=== PATIENT | female | born 1935 | race Asian ===

== ENCOUNTER 2017-03-20 19:50 | Emergency (ER) | payer MEDICARE, OTHER ==
[~2017-03-20] VITALS: Ht 157.5 cm; Wt 68.0 kg
[~2017-03-20 19:50] MED LIST: ALEN70TA15; AMLO-145; ESOM40CA; LIDO700A6; RALO60TA12; VALS160T20; [UNRECOGNIZED DRUG - REMARK]
[2017-03-20 19:55] VITALS: Ht 157.5 cm; Wt 68.0 kg
--- NOTE | 2017-03-20 21:58 | ERA ---
ER Documentation Chief Complaint Date/Time DATE: 03/20/17 TIME: 21:58 Chief Complaint cough, sob x 1 week, no respiratory distress noted HPI The patient is a 81-year-old female, presenting to the ER because of intermittent coughs, sneezing, congestion for 1 week. She does not any fever, chills, neck pain, chest pain, abdominal pain, vomiting, dysuria, diarrhea. She does not smoke Past medical history: Hypertension, osteoporosis Past surgical history: Right nephrectomy ROS All systems reviewed and are negative except as per history of present illness. Medications Home Meds Active Scripts Methylprednisolone* (Medrol* DOSE PACK) 4 Mg/Dose-Pack Tab.ds.pk, 4 MG PO . DIRECTED, #1 PACKET Prov:MOSES PATEL MD 03/20/17 Albuterol Sulfate* (Proair HFA*) 8.5 Gm Hfa.aer.ad, 2 PUFF INH Q4, #1 INHALER Prov:MOSES PATEL MD 03/20/17 Dextromethorphan Hb-Promethazine Hcl* (Promethazine DM* Syrup) 473 Ml Syrup, 10 ML PO Q6 Y for COUGH, #120 ML Prov:MOSES PATEL MD 03/20/17 Azithromycin* (Zithromax*) 250 Mg Tablet, 250 MG PO .ZPACK DIRECTED, #6 TAB TAKE 500 MG (2 TABS) THE FIRST DAY THEN 250 MG (1 TAB) DAYS 2-5 Prov:MOSES PATEL MD 03/20/17 Reported Medications Alendronate Sodium (Fosamax) 70 Mg Tablet 08/07/10 Lidocaine 5%* (Lidoderm 5%*) 30 Ea Adh..patch 08/07/10 Esomeprazole Mag Trihydrate (Nexium) 40 Mg Capsule. 08/07/10 Raloxifene Hcl* (Evista*) 60 Mg Tablet 08/07/10 Amlodipine Besylate* (Amlodipine Besylate*) 5 Mg Tablet 08/07/10 Valsartan* (Diovan*) 160 Mg Tablet 08/07/10 [Artheritis Meds] No Conflict Check 04/08/10 Allergies Allergies: Coded Allergies: Ibuprofen (Verified Allergy, Unknown, 04/10/11) Uncoded Allergies: [id number] (ADVIL) (Allergy, Mild, 08/07/10) PMhx/Soc History of Surgery: No Anesthesia Reaction: No Hx Neurological Disorder: No Hx Respiratory Disorders: No Hx Cardiac Disorders: Yes (HTN) Hx Psychiatric Problems: No Hx Miscellaneous Medical Probl: No Hx Alcohol Use: No Hx Substance Use: No Hx Tobacco Use: No Physical Exam Vitals Vital Signs Date Time Temp Pulse Resp B/P Pulse Ox O2 Delivery O2 Flow Rate FiO2 03/21/17 00:04 16 100 Room Air 03/20/17 23:38 71 22 95 21 03/20/17 22:29 68 20 96 21 03/20/17 19:55 99.9 72 17 152/86 96 Physical Exam Const: No acute distress. Head: Atraumatic. Eyes: Normal Conjunctiva. ENT: Normal External Ears, Nose and Mouth. Bilateral tympanic membranes and oropharynx are within normal limit Neck: Full range of motion. No meningismus. Resp: Minimal expiratory wheezes Cardio: Regular rate and rhythm, no murmurs. Abd: Soft, non distended, normal bowel sounds, non tender. Skin: No petechiae or rashes. Back: No midline or flank tenderness. Ext: No cyanosis, or edema. Neur: Awake and alert. No focal deficit Psych: Normal Mood and Affect. Results 24 hrs Current Medications Medications (Trade) Dose Ordered Sig/Yvon Route PRN Reason Start Time Stop Time Status Last Admin Dose Admin Levalbuterol (Xopenex Neb) 1.25 mg ONCE ONCE [facility] 03/20/17 22:30 03/20/17 22:31 DC 03/20/17 22:28 Ipratropium [place] (Atrovent 0.02% (Neb)) 0.5 mg ONCE ONCE [facility] 03/20/17 22:30 03/20/17 22:31 DC 03/20/17 22:28 Levalbuterol (Xopenex Neb) 1.25 mg ONCE ONCE [facility] 03/20/17 23:30 03/20/17 23:31 DC 03/20/17 23:37 Ipratropium [place] (Atrovent 0.02% (Neb)) 0.5 mg ONCE ONCE [facility] 03/20/17 23:30 03/20/17 23:31 DC 03/20/17 23:37 Procedures/[place] [address] Radiology Main Line: [phone] DIAGNOSTIC IMAGING REPORT Patient: BILL LOZA : 1935 Age: 81 Sex: F MR #: [id number] DOS: 03/20/17 2211 Ordering MD: MOSES PATEL MD Location: FTE Room/Bed: PROCEDURE: XR Chest. CLINICAL INDICATION: Cough. TECHNIQUE: Single frontal chest x-ray. COMPARISON: None available. FINDINGS: The cardiomediastinal silhouette is unremarkable. Aortic atherosclerotic vascular calcifications and tortuosity are identified. Mild bibasilar atelectasis is noted. No pneumothorax, pleural effusion or consolidation is seen. No acute osseous abnormality is noted. IMPRESSION: 1. Mild bibasilar atelectasis. 2. Aortic tortuosity and atherosclerosis. RPTAT: HFN .Boni Drake MD, MD Date Time Electronically viewed and signed by .Boni Drake MD, MD on 03/20/2017 22: 53 .N/ CC: MOSES PATEL MD MEDICAL MAKING DECISION: The patient is a 81-year-old female, presenting with acute bronchitis with wheezing. she was treated with Xopenex 1.25 mg 2 and Atrovent 0.5 mg 2 nebulizer with good response. The differential diagnoses considered include but are not limited to asthma, COPD, pneumonia, pulmonary embolus, pleural effusion, congestive heart failure. Departure Diagnosis: Primary Impression: Bronchitis Condition: Good Comments She was discharged with albuterol MDI, Zithromax, Phenergan DM, Medrol dosepk I discussed the findings with the patient. I advised the patient to follow-up with the primary physician in about 1-2 days, sooner if needed and return if any concern. MOSES PATEL MD Mar 20, 2017 21:58
[2017-03-20] MEDS ORDERED: LEVALBUTEROL (NEB) 1.25 MG/0.5 ML AMP HHN ONE ×2 (22:30→23:30)
[2017-03-20] MEDS ORDERED: IPRATROPIUM (NEB) 0.5 MG/2.5 ML AMP HHN ONE ×2 (22:30→23:30)
--- NOTE | 2017-03-20 22:53 | RADRPT ---
PROCEDURE: XR Chest. CLINICAL INDICATION: Cough. TECHNIQUE: Single frontal chest x-ray. COMPARISON: None available. FINDINGS: The cardiomediastinal silhouette is unremarkable. Aortic atherosclerotic vascular calcifications and tortuosity are identified. Mild bibasilar atelectasis is noted. No pneumothorax, pleural effusion or consolidation is seen. No acute osseous abnormality is noted. IMPRESSION: 1. Mild bibasilar atelectasis. 2. Aortic tortuosity and atherosclerosis. RPTAT: HFN .Boni Drake MD, Date Time Electronically viewed and signed by .Boni Drake MD, on 03/20/2017 22:53 .N/
[2017-03-20] MEDS ORDERED: D-ME473S2 PO (23:09)
[2017-03-20] MEDS ORDERED: AZIT250T94 PO (23:09)
[2017-03-20] MEDS ORDERED: MED4DP PO (23:10)
[2017-03-20] MEDS ORDERED: ALBU8.5H3 INH (23:10)
[2017-03-21 00:04] VITALS: RESP 16
== END 2017-03-21 00:05 | disposition home or self-care (01) ==
LOC: FTE 19:50
DX: J20.9 Acute bronchitis, unspecified (principal); I10 Essential (primary) hypertension
CPT/HCPCS: 71010; 94640; 94664

== ENCOUNTER 2018-04-10 19:47 | Emergency (ER) | END 2018-04-10 22:23 | disposition home or self-care (01) ==

== ENCOUNTER 2019-03-04 21:46 | Emergency (ER) | payer MEDICARE, OTHER ==
[~2019-03-04] VITALS: Ht 152.4 cm; Wt 68.5 kg
[~2019-03-04 21:46] MED LIST changes: -ALEN70TA15; -AMLO-145; +CEPH-443 PO; +CLOP75TA27 PO; -ESOM40CA; +FAMO20TA18 PO; -LIDO700A6; -RALO60TA12; +SULF1TAB31 PO; -VALS160T20; +VALS160T20 PO; -[UNRECOGNIZED DRUG - REMARK]
[2019-03-04 22:10] VITALS: Ht 152.4 cm; Wt 68.5 kg
--- NOTE | 2019-03-04 23:23 | ERD ---
ER Documentation Chief Complaint Chief Complaint constipation since friday HPI The patient is a 83-year-old female, presenting to the ER because she has been constipated for the last 3 days after she took a Dodge for pain after bladder surgery 3 days ago. She complains of lower abdominal pain, denies dysuria, fever, chills, neck pain, chest pain, dyspnea, upper abdominal pain, vomiting. She does not smoke nor drink Past medical history: Hypertension, dyslipidemia, CAD, chronic kidney disease Past surgical history: Right nephrectomy ROS All systems reviewed and are negative except as per history of present illness. Medications Home Meds Active Scripts Polyethylene Glycol* (Miralax*) 17 Gm Powd.pack, 17 GM PO DAILY, #30 PACKET Prov:MOSES PATEL MD 03/05/19 Sulfamethoxazole/Trimethoprim* (Bactrim Ds* Tablet) 1 Each Tablet, 1 TAB PO BID, #14 TAB Prov:RAMIN OKEEFE MD 04/10/18 Cephalexin* (Keflex*) 500 Mg Capsule, 500 MG PO TID for 7 Days, CAP Prov:RAMIN OKEEFE MD 04/10/18 Reported Medications Famotidine* (Famotidine*) 20 Mg Tablet, 20 MG PO NEEDED, #30 TAB 04/10/18 Valsartan* (Diovan*) 160 Mg Tablet, 160 MG PO DAILY, TAB 04/10/18 Clopidogrel Bisulfate (Clopidogrel) 75 Mg Tablet, 75 MG PO DAILY, #30 TAB 04/10/18 Allergies Allergies: Coded Allergies: ibuprofen (Verified Allergy, Unknown, 04/10/18) Uncoded Allergies: [id number] (ADVIL) (Allergy, Mild, 08/07/10) PMhx/Soc History of Surgery: Yes (donated 1 kidney) Anesthesia Reaction: No Hx Neurological Disorder: No Hx Respiratory Disorders: No Hx Cardiac Disorders: Yes (HTN, hyperlipidemia, CAD) Hx Psychiatric Problems: No Hx Miscellaneous Medical Probl: Yes (kidney problems) Hx Alcohol Use: No Hx Substance Use: No Hx Tobacco Use: No Smoking Status: Never smoker Physical Exam Vitals Vital Signs Date Temp Pulse Resp B/P (MAP) Pulse Ox O2 O2 Flow FiO2 Time Delivery Rate 03/05/19 78 20 135/97 99 Room Air 01:49 (110) 03/04/19 99.0 95 20 142/103 99 22:10 (116) Physical Exam Const: No acute distress. Head: Atraumatic. Eyes: Normal Conjunctiva. ENT: Normal External Ears, Nose and Mouth. Neck: Full range of motion. No meningismus. Resp: Clear to auscultation bilaterally. Cardio: Regular rate and rhythm. Abd: Soft, non distended, normal bowel sounds, there is abdominal tenderness, mild tenderness in the lower abdomen, no rigidity/rebound/CVA tenderness. Skin: No petechiae or rashes. Back: No midline or flank tenderness. Ext: No cyanosis, or edema. Neur: Awake and alert. No focal deficit Psych: Normal Mood and Affect. Result Diagram: 03/05/193903/05/1939 Results 24 hrs Laboratory Tests Test 03/05/19 00:40 White Blood Count 9.7 10^3/ul Red Blood Count 3.81 10^6/ul Hemoglobin 11.5 g/dl Hematocrit 35.7 % Mean Corpuscular Volume 93.7 fl Mean Corpuscular Hemoglobin 30.2 pg Mean Corpuscular Hemoglobin Concent 32.2 g/dl Red Cell Distribution Width 13.4 % Platelet Count 225 10^3/UL Mean Platelet Volume 9.8 fl Immature Granulocytes % 0.400 % Neutrophils % 82.4 % Lymphocytes % 10.7 % Monocytes % 5.1 % Eosinophils % 1.2 % Basophils % 0.2 % Nucleated Red Blood Cells % 0.0 /100WBC Immature Granulocytes # 0.040 10^3/ul Neutrophils # 8.0 10^3/ul Lymphocytes # 1.0 10^3/ul Monocytes # 0.5 10^3/ul Eosinophils # 0.1 10^3/ul Basophils # 0.0 10^3/ul Nucleated Red Blood Cells # 0.0 10^3/ul Sodium Level 139 mmol/L Potassium Level 5.3 mmol/L Chloride Level 102 mmol/L Carbon Dioxide Level 25 mmol/L Anion Gap 12 Blood Urea Nitrogen 26 mg/dl Creatinine 2.02 mg/dl Est Glomerular Filtrat Rate mL/min mL/min Glucose Level 124 mg/dl Calcium Level 9.7 mg/dl Total Bilirubin 0.4 mg/dl Direct Bilirubin 0.00 mg/dl Indirect Bilirubin 0.4 mg/dl Aspartate Amino Transf (AST/SGOT) 25 IU/L Alanine Aminotransferase (ALT/SGPT) 14 IU/L Alkaline Phosphatase 71 IU/L Total Protein 7.5 g/dl Albumin 4.1 g/dl Globulin 3.40 g/dl Albumin/Globulin Ratio 1.20 Lipase 122 U/L Current Medications Medications Dose Sig/Yvon Start Time Status Last (Trade) Ordered Route PRN Stop Time Admin Dose Reason Admin Bisacodyl 10 mg ONCE ONCE 03/05/19 DC 03/05/19 (Dulcolax TX 01:30 03/05/19 01:36 Supp) 01:31 Sodium 133 ml ONCE ONCE 03/05/19 DC 03/05/19 Biphosphate/ [place] 01:30 03/05/19 01:35 Sodium 01:31 Phosphate (Fleet Enema) Procedures/[place] [address] Radiology Main Line: [phone] DIAGNOSTIC IMAGING REPORT Patient: BILL LOZA : 1935 Age: 83 Sex: F MR #: [id number] DOS: 03/04/19 2343 Ordering MD: MOSES PATEL MD Location: E/R Room/Bed: PROCEDURE: CT abdomen and pelvis without contrast. CLINICAL INDICATION: 83-year-old female. Abdominal pain. TECHNIQUE: CT scan of the abdomen and pelvis without contrast was performed on a multi-slice CT scanner utilizing axial imaging from the lung bases through the pubis symphysis. One or more the following does reduction techniques were utilized: Automated exposure control, adjustment of the mA/ or kV according to patient's size, or use of iterative reconstruction technique. Sagittal and coronal reformatted images were made. DICOM images are available for review. The CTDIvol is 11.61 mGy and the DLP is 688.14 mGycm. COMPARISON: None. FINDINGS: CT abdomen Visualized lung bases: Dependent related change and subsegmental atelectasis posterior right lower lobe. Related change posterior left lower lobe with calcified granuloma. Mild cardiomegaly. No pleural or pericardial effusion. Mild ectasia distal descending thoracic aorta. Liver: Limited evaluation without IV contrast. Calcified granuloma superior right hepatic lobe. Gallbladder and bile ducts: Small faintly calcified gallstone in the gallbladder. No pericholecystic fluid. No biliary ductal dilatation. Spleen: Calcified splenic granulomas. Pancreas: Normal appearance. No ductal dilatation. No mass. No peripancreatic stranding. Adrenal glands: Normal appearance. Kidneys: Absent right kidney. Mild left-sided caliectasis. No calcified renal stones. No hydroureter. Vasculature: No abdominal aortic aneurysm. Calcified plaque present. Negative IVC. Lymph nodes: No adenopathy. GI: No hiatal hernia. No evidence of obstruction or bowel wall thickening. Diverticulosis involving the ascending and descending colon. Peritoneal cavity: No free fluid or free air. CT pelvis GI: Negative terminal ileum. Absent appendix. Minimal sigmoid diverticulosis. Mildly distended, stool-filled rectum. : Normal appearing urinary bladder and distal ureters. Small uterus. No adnexal mass. Peritoneal cavity: No free fluid or loculated fluid collections. Lymph nodes: No adenopathy. Osseous structures: No lytic or blastic lesions. No endplate fractures. Multilevel thoracic and lumbar disc degeneration with vacuum phenomenon. IMPRESSION: 1. Absent right kidney. Does the patient have history of nephrectomy? 2. Prior granulomatous disease. 3. Cholelithiasis. 4. Minimal diverticulosis of the ascending, descending and sigmoid colon. No acute diverticulitis. RPTAT: [facility] Physician Mango Date Time Electronically viewed and signed by Physician Mango on 03/05/2019 01:12 RS/ CC: MOSES PATEL MD [id number] MEDICAL MAKING DECISION: The patient is a 83-year-old female, presenting with acute constipation after taking Dodge. She was treated with Dulcolax suppository and Fleet enema with good response, is stable for outpatient follow- up The differential diagnoses considered include but are not limited to cholelithiasis, cholecystitis, choledocholithiasis, cholangitis, pancreatitis, hepatitis, gastritis, peptic ulcer disease, gastric ulcer, appendicitis, cystitis, diverticulitis, partial small bowel obstruction. Departure Diagnosis: Primary Impression: Constipation Additional Impressions: Hyperkalemia Anemia Condition: Good Comments She was discharged with MiraLAX I discussed the findings with the patient. I advised the patient to follow-up with the primary physician/senior qa analyst in about 2-3 days, sooner if needed and return if any concern. Disclaimer: Inadvertent spelling and grammatical errors are likely due to EHR/dictation software use and do not reflect on the overall quality of patient care. Also, please note that the electronic time recorded on this note does not necessarily reflect the actual time of the patient encounter. MOSES PATEL MD Mar 04, 2019 23:23
[2019-03-05] MEDS ORDERED: NA PHOSPHATE/BIPHOS 133 ML ENEMA PR ONE (01:30)
[2019-03-05] MEDS ORDERED: BISACODYL 10 MG SUPP PR ONE (01:30)
[2019-03-05] MEDS ORDERED: POLY17PO6 PO (01:32)
[2019-03-05 01:49] VITALS: BP 135/97; PULSE 78; RESP 20
== END 2019-03-05 01:55 | disposition home or self-care (01) ==
LOC: E/R 21:46
DX: K59.00 Constipation, unspecified (principal); I25.10 Atherosclerotic heart disease of native coronary artery without angina pectoris; I12.9 Hypertensive chronic kidney disease with stage 1 through stage 4 chronic kidney disease, or unspecified chronic kidney disease; N18.9 Chronic kidney disease, unspecified; E87.5 Hyperkalemia; D64.9 Anemia, unspecified; Z79.01 Long term (current) use of anticoagulants
CPT/HCPCS: 36415; 74176; 80053; 83690; 85025